=== PATIENT | female | born 1975 | race Hispanic/Latino ===

== ENCOUNTER 2016-08-10 19:57 | Emergency (ER) | payer OTHER ==
[~2016-08-10] VITALS: Ht 154.9 cm; Wt 90.9 kg
[2016-08-10 20:06] VITALS: BP 110/76; PULSE 91; RESP 15; O2SAT 99
[2016-08-10] MEDS ORDERED: 0.9% Sodium Chloride 1,000 ML IV ONE (21:30)
--- NOTE | 2016-08-10 21:32 | ED.REPORT ---
[facility] Date of Service Aug 10, 2016 ED Provider: David Allen MD Pt is a 41 year old female presenting to the ED complaining of severe abdominal cramping onset 5 days ago, worsened today. Associated symptoms include a subjective fever onset today, nausea, vomiting and diarrhea (3-4 episodes of both today) and a cough. Denies SOB, congestion or dysuria. She denies any recent sick contacts or travel. Nursing Notes Stated Complaint: FEVER AND VOMITING Chief Complaint: FLU/Cold Symptoms Nursing Notes Reviewed: Yes ([employer], meds not reconciled) Allergies: Coded Allergies: No Known Allergies (Verified , 08/10/16) Uncoded Allergies: NKDA (Allergy, Unknown, 07/25/04) No Known Allergies (Allergy, Unknown, 07/25/04) Scheduled PRN Ondansetron ODT (Ondansetron ODT) 8 Mg Tab.rapdis 8 MG PO Q4H PRN PRN For Nausea General Time Seen by Provider: 21:45 Chief Complaint Abdominal pain Hx Obtained From: Patient Arrived By: Walk-in Onset Occurred: 5 days ago Symptom Duration: Since onset Progression Since Onset: Gradually worsening Location: : Abdomen Quality: Cramping, Painful Severity: Current: Moderate Severity: Maximum: Severe Recent Healthcare: No recent doctor visit, No recent hospitalization Similar Sx Previous: No Past Medical History Past Medical History denies Past Surgical History Hernia repair Reports: Smoking History Never Smoker Social History Alcohol Use: "Social" Ambulatory Status Independent Review of Systems Constitutional: Reports: Fever Ears / Nose / Throat: Denies: Nasal congestion Respiratory: Reports: Non-productive cough, Denies: Shortness of breath GI: Reports: Abdominal pain, Diarrhea, Nausea, Vomiting Complete sys rev & neg: except as marked. Female: Denies: Dysuria Physical Exam Initial Vital Signs Vital Signs (First) Date Time Temp Pulse Resp B/P Pulse Ox O2 Delivery O2 Flow Rate FiO2 08/10/16 20:06 36.9 91 15 110/76 99 Room Air Initial VS: Reviewed, Vital signs normal Head / Eyes: Atraumatic, Normocephalic, PERRL ENT: Mucous membranes moist, Conjunctiva normal, No scleral icterus Extremities: Vascular intact, Neuro intact, No swelling, No tenderness Psychiatric: Mood/affect normal, Behavior normal, Normal thought content General/Constitutional: Awake, Alert, No acute distress Behavior: Positive: Anxious (Slightly) Fatigued. Neck: Supple, Full range of motion, No adenopathy Respiratory / Chest: Breath sounds NL, Breath sounds = bilat, No respiratory distress, No rales, No rhonchi, No wheezing, No retractions Cardiovascular: Heart rate NL, Regular rhythm, Heart sounds NL, No murmurs, Peripheral circulation NL Skin: Color NL, No rash, Warm, Dry, Intact Abdomen: Soft, Non-tender, No guarding, No rebound No peritonitis. Interpretation & Diagnostics Lab Results Interpretation Result Diagram: 08/10/16 2253 08/10/16 2200 Test 08/10/16 22:00 08/10/16 22:53 Sodium Level 134mEq/L (134-144) Potassium Level 3.9mEq/L (3.5-5.2) Chloride Level 99mEq/L (97-108) Carbon Dioxide Level 20mmol/L (18-29) Blood Urea Nitrogen 16mg/dL (6-24) Creatinine 0.52mg/dL (0.57-1.00) Estimat Glomerular Filtration Rate 187mL/min (>59) Glucose Level 112mg/dL (60-99) Calcium Level 8.8mg/dL (8.5-10.1) Total Bilirubin 0.3mg/dL (0.0-1.2) Aspartate Amino Transf (AST/SGOT) 22U/L (0-50) Alanine Aminotransferase (ALT/SGPT) 11U/L (0-32) Alkaline Phosphatase 71U/L (25-150) Total Protein 7.3g/dL (6.4-8.4) Albumin 3.8g/dL (3.4-5.0) Human Chorionic Gonadotropin, Qual 0.500 (Negative) White Blood Count 9.2th/mm3 (3.8-10.1) Red Blood Count 4.12mil/mm3 (3.90-5.20) Hemoglobin 12.6g/dL (12.0-15.6) Hematocrit 38.2% (35.0-46.0) Mean Corpuscular Volume 92.7fL (81-100) Mean Corpuscular Hemoglobin 30.6pg (27.0-35.0) Mean Corpuscular Hemoglobin Concent 33.0% (32.0-37.0) Red Cell Distribution Width 12.6% (12.3-15.4) Platelet Count 249bil/L (150-400) Neutrophils (%) (Auto) 86.3% (40-74) Lymphocytes (%) (Auto) 7.4% (14-46) Monocytes (%) (Auto) 5.1% (4-12) Eosinophils (%) (Auto) 0.7% (0-5) Basophils (%) (Auto) 0.1% (0-3) Hold Blue Top Tube Received (Received) Hold [place] Top Tube Received (Received) Re-Evaluation & [facility] Med Decision/Clinical Course This is a 41-year-old female presents to several days of nausea vomiting and diarrhea and body aches. She has no travel history, no blood in the vomit or stool. She has had subjective fever, some chills. On exam she appears fatigued, but nontoxic. She is not currently febrile, her abdomen is soft and nontender without signs of acute surgical abdomen. Lungs clear, she is not tachypneic or dyspneic, she has no rash or exanthem. She was hydrated, labs are obtained were normal, flu swabs negative. After hydration, some pain and nausea medicine patient's markedly improved. Finding indication of an acute surgical or infectious abdomen require imaging or admission. Patient's comfortable discharged home. Routine precautions reviewed. Source of Hx: Old records Re-Evaluation/Progress : Time of Eval: 23:46 Patient Status: Condition improved Re-Evaluation/Progress Note: Discussed lab and negative inlfuenza results. Differential Diagnosis: Positive: Dehydration (mild), Negative: Appendicitis, Bowel obstruction, Diabetes/DKA, Gastroenteritis, Pneumonia, Sepsis, Sinusitis Counseled Regarding: Diagnosis, Lab results, Need for follow-up, When/why to return to ED Patient Discharge & Departure Impression: Primary Impression: Nausea vomiting and diarrhea Additional Impression: Dehydration Disposition: Home Discharge Condition All VS Reviewed: Yes Condition: Improved Additional Instructions: 1. Your blood test and flu tests were negative. 2. Dehydrated, but not to the point that you had electrolyte or laboratory abnormalities. 3. Rest. 4. Drink small, frequent sips of fluids to stay hydrated. 5. Take ondansetron 8 mg-lead dissolve underneath tongue-up every 4 hours if needed for nausea. 6. Take hydrocodone/APAP 5/325 1-2 tabs every 6 hours if needed for abdominal cramps/diarrhea. Note: This medication does contain a narcotic and causes some drowsiness, no driving for at least 4 hours after taking 7. Symptoms are expected to improve rapidly over the next 1-2 days. 8. Return if new or worsening symptoms. Referrals: Karen Lucas MD Attestation Portions of this note were transcribed by Narcisa Edwards. I, Dr. Allen personally performed the history, physical exam and medical decision-making; I reviewed and confirmed the accuracy of the information in the transcribed note. Signed by: Jeffrey Ceron, 08/11/16 and 0023. copies to: aKren Lucas MD, Matthew F MD Aug 10, 2016 21:32 NARCISA EDWARDS Aug 10, 2016 21:49
[2016-08-10] MEDS ORDERED: Ondansetron 2 mg/mL 2 mL Inj IVPUSH ONE (21:35)
[2016-08-10] MEDS: HYDROmorphone 0.5 mg/0.5 mL iSecure Syringe IVPUSH PRN ×4 (21:55→23:28)
[2016-08-10 22:00] VITALS: BP 118/70; PULSE 76; RESP 16; O2SAT 99
[2016-08-10 23:34] LABS: BASOPHILS % (AUTO) 0.1 % (0-3); EOSINOPHILS % (AUTO) 0.7 % (0-5); MONOCYTES % (AUTO) 5.1 % (4-12); Mean Corpuscular Hemoglobin 30.6 pg (27.0-35.0); Mean Corpuscular Volume 92.7 fL (81-100); NEUTROPHILS % (AUTO) 86.3 % (40-74); Platelet Count 249 bil/L (150-400)
[2016-08-10] MEDS ORDERED: _HYDROcodone/APAP 5-325 mg Tablet PO PRN (23:50)
[2016-08-10] MEDS ORDERED: _Ondansetron ODT 4 mg Tablet PO PRN (23:50)
[2016-08-10 23:55] VITALS: BP 128/68; PULSE 80; RESP 17; O2SAT 99
[2016-08-10] MEDS ORDERED: ONDA8TAB10 PO (23:59)
[2016-08-11 00:33] VITALS: BP 122/72; PULSE 88; RESP 18; O2SAT 100
== END 2016-08-11 00:35 | disposition home or self-care (01) ==
LOC: SED 19:57
DX: R11.2 Nausea with vomiting, unspecified (principal); R19.7 Diarrhea, unspecified; E86.0 Dehydration; R10.9 Unspecified abdominal pain; R05 Cough
CPT/HCPCS: 36415; 80053; 84703; 85025; 87804; 96361; 96374; 96375; 96376; 99285; J1170; J2405; J7030